=== PATIENT | male | born 1970 | race African-American/Black ===

== ENCOUNTER 2024-05-08 19:15 | Emergency (ER) | payer SELFPAY ==
[~2024-05-08] VITALS: Ht 182.9 cm; Wt 109.0 kg
[2024-05-08 19:17] VITALS: O2SAT 97
[2024-05-08 23:05] VITALS: BP 132/81; PULSE 81; RESP 17; TEMP 36.7; O2SAT 97
== END 2024-05-08 23:15 | disposition home or self-care (01) ==
LOC: ER 19:15
DX: F10.129 Alcohol abuse with intoxication, unspecified (principal); R55 Syncope and collapse; Y90.9 Presence of alcohol in blood, level not specified
CPT/HCPCS: 70450; 93005; 99284; Z7610